=== PATIENT | female | born 1995 | race Caucasian/White ===

== ENCOUNTER 2017-10-01 08:39 | Emergency (ER) | payer BC ==
[2017-10-01 08:51] VITALS: BP 159/103
--- NOTE | 2017-10-01 08:57 | UC ---
Throat Pain/Nasal Anthony HPI - HPI Summary HPI Summary: 22 year old female presents with complains chest congestion and sore throat. - History of Current Complaint Chief Complaint: UCRespiratory Stated Complaint: CHEST/SINUS CONGESTION SORE THROAT Time Seen by Provider: 10/01/17 08:51 Hx Obtained From: Patient Hx Last Menstrual Period: 08/26/17 Onset/Duration: Sudden Onset Severity: Moderate - Allergies/Home Medications Allergies/Adverse Reactions: Allergies Allergy/AdvReac Type Severity Reaction Status Date / Time Cefaclor [From [facility]] Allergy Intermediate Rash Verified 10/01/17 08:47 Home Medications: Home Medications Dextromethorphan-Guaifenesin [Mucinex Dm Maximum Streng 60-1200 mg] 1 tab PO Q12H PRN 10/01/17 [History Confirmed 10/01/17] PMH/Surg Hx/FS Hx/Imm Hx Previously Healthy: Yes - Surgical History Surgical History: None - Family History Known Family History: Positive: None, Cardiac Disease - MGM, PGF, Other - Dad with psoriasis - Social History Alcohol Use: None Substance Use Type: None Smoking Status (MU): Never Smoked Tobacco - Immunization History Most Recent Influenza Vaccination: Not the 2016/2017 Season Review of Systems Constitutional: Negative Skin: Negative Eyes: Negative ENT: Nasal Discharge, Sinus Congestion, Sinus Pain/Tenderness Respiratory: Cough Cardiovascular: Negative Gastrointestinal: Negative Genitourinary: Negative Motor: Negative Neurovascular: Negative Musculoskeletal: Negative Neurological: Negative Psychological: Negative All Other Systems Reviewed And Are Negative: Yes Physical Exam Triage Information Reviewed: Yes Vital Signs: Initial Vital Signs Temp 37.1 C 10/01/17 08:46 Pulse 106 10/01/17 08:46 Resp 18 10/01/17 08:46 BP 159/103 10/01/17 08:46 Pulse Ox 100 10/01/17 08:46 Vital Signs Reviewed: Yes Eye Exam: Normal ENT: Positive: Pharyngeal erythema, Nasal congestion, Nasal drainage, Sinus tenderness Dental Exam: Normal Neck exam: Normal Neck: Positive: 1 Respiratory: Positive: Rhonchi, Wheezing Cardiovascular Exam: Normal Abdominal Exam: Normal Musculoskeletal Exam: Normal Neurological Exam: Normal Psychological Exam: Normal Skin Exam: Normal Throat Pain/Nasal Course/Dx - Differential Dx/Diagnosis Provider Diagnoses: pharyngitis. cough. chest congestion Discharge - Discharge Plan Condition: Stable Disposition: HOME Prescriptions: Albuterol HFA INHALER* [Ventolin HFA Inhaler*] 1 puff INH Q6H PRN #1 mdi PRN Reason: Wheezing Azithromyxin CHET (NF) [Z-Chet (Zithromax) 250 mg tabs #6] 2 tab PO .TODAY, THEN 1 DAILY #6 tab LoraTADine TAB(NF) [Claritin 10 MG TAB(NF)] 10 mg PO DAILY #30 tab Magic M W2 Jason/Maal/Nyst/Lido* 5 ml SWISH SPIT QID PRN #120 ml PRN Reason: Pain Promethazine-Dm [Promethazine/Dextromethor 6.25-15 mg/5Ml] 1 teasp PO BEDTIME PRN #120 ml PRN Reason: Cough Patient Education Materials: Allergic Rhinitis (ED) Referrals: Diana Crane MD [Medical Doctor] -
== END 2017-10-01 09:03 | disposition home or self-care (01) ==
LOC: UCCORT 08:39
DX: J02.9 Acute pharyngitis, unspecified (principal); R05 Cough; R09.89 Other specified symptoms and signs involving the circulatory and respiratory systems
CPT/HCPCS: 99212; G0463